=== PATIENT | male | born 1970 | race African-American/Black ===

== ENCOUNTER 2024-06-12 17:06 | Inpatient (IN) | payer OTHER ==
[2024-06-12 19:17] VITALS: BMI 26.6
[2024-06-12] MEDS ORDERED: POLYETHYLENE GLYCOL (HEALTHYLAX) 3350 17 GM PACKET PO PRN (19:31)
[2024-06-12] MEDS ORDERED: IBUPROFEN 600 MG TABLET (FP) PO PRN (19:31)
[2024-06-12] MEDS ORDERED: NICOTINE POLACRILEX 2 MG LOZENGE BC PRN (19:31)
[2024-06-12] MEDS ORDERED: NALOXONE HCL 0.4 MG/ML VIAL IM PRN (19:31)
[2024-06-12] MEDS ORDERED: DICYCLOMINE HCL 10 MG CAPSULE PO PRN (19:31)
[2024-06-12] MEDS ORDERED: MAG HYDROX/AL HYDROX/SIMETH 30 ML UNIT-DOSE CUP PO PRN (19:31)
[2024-06-12] MEDS ORDERED: guaiFENesin 600 MG TABLET.ER (FP) PO PRN (19:31)
[2024-06-12] MEDS ORDERED: BISMUTH SUBSALICYLATE 524 MG/30 ML PO PRN (19:31)
[2024-06-12] MEDS ORDERED: LOPERAMIDE HCL 2 MG CAPSULE PO PRN (19:31)
[2024-06-12] MEDS ORDERED: MAGNESIUM HYDROX 2400MG/30ML ORAL SUSPENSION 30 ML CUP PO PRN (19:31)
[2024-06-12] MEDS ORDERED: NALOXONE (NARCAN) HCL 4 MG/0.1 ML SPRAY NS PRN (19:31)
[2024-06-12] MEDS ORDERED: BENZONATATE 200 MG CAPSULE PO PRN (19:31)
[2024-06-12] MEDS ORDERED: IBUPROFEN 400 MG TABLET (FP) PO PRN (19:31)
[2024-06-12] MEDS ORDERED: BENZOCAINE/MENTHOL (CHLORASEPTIC ) LOZENGE MM PRN (19:31)
[2024-06-12] MEDS ORDERED: NICOTINE POLACRILEX 2 MG GUM BUC PRN (19:31)
[2024-06-12] MEDS ORDERED: ACETAMINOPHEN 325 MG TABLET (FP) PO PRN (19:31)
[2024-06-12] MEDS ORDERED: amLODIPine BESYLATE 5 MG TABLET (FP) ONE (21:34)
[2024-06-12] MEDS: amLODIPine BESYLATE 10 MG TABLET (FP) PO ONE (21:55)
[2024-06-12] MEDS ORDERED: MELATONIN 5 MG TABLETS ONE (22:59)
[2024-06-12] MEDS: MELATONIN 5 MG TABLETS PO SCH (23:10)
[2024-06-12] MEDS: THIAMINE 100 MG TABLET PO SCH (23:10)
[2024-06-13] MEDS: methaDONE HCL 10 MG TABLET (FOR DETOX USE ONLY) PO ONE (10:50)
[2024-06-13] MEDS: PRENATAL VITAMINS W/ FOLIC ACID TABLET (FP) PO SCH (10:52)
[2024-06-13 14:38] LABS: HEMATOCRIT 35.9 % (35.4-49); HEMOGLOBIN 11.9 GM/dL (11.7-16.9); MCH 30.4 pg (25.7-33.7); MCHC 33.1 g/dl (32.0-35.9); MEAN CELL VOLUME 91.7 fl (80-96); MEAN PLT VOLUME 8.3 fl (7.5-11.1); PLATELET COUNT 267 10^3/uL (134-434); RBC 3.92 M/mm3 (4.00-5.60); RDW 13.7 % (11.9-15.9); WHITE BLOOD COUNT 5.6 K/mm3 (4.0-10.0)
[2024-06-13 14:46] LABS: CHLORIDE 107 mmol/L (98-107); POTASSIUM 3.9 mmol/L (3.5-5.1); SODIUM 141 mmol/L (136-145)
[2024-06-13 14:54] LABS: ALBUMIN 2.9 g/dl (3.4-5.0); ANION GAP 6 mmol/L (4-13); BLOOD UREA NITROGEN 12.5 mg/dL (7-18); CALCIUM 8.3 mg/dL (8.5-10.1); CO2 29 mmol/L (21-32); GLUCOSE,RANDOM 87 mg/dL (74-106)
[2024-06-13 14:57] LABS: SGOT/AST 15 U/L (15-37); SGPT/ALT 13 U/L (13-61)
[2024-06-13 14:58] LABS: CREATININE 0.7 mg/dL (0.55-1.3)
[2024-06-13 14:59] LABS: BILIRUBIN,TOTAL 0.6 mg/dL (0.2-1); TOT PROT 5.7 g/dl (6.4-8.2)
[2024-06-13 15:00] LABS: ALK PHOS 60 U/L (45-117)
[2024-06-13] MEDS: cloNIDine HCL 0.1 MG TABLET PO PRN (21:40)
[2024-06-13] MEDS: METHOCARBAMOL 500 MG TABLET PO PRN (21:40)
[2024-06-14] MEDS: LOSARTAN POTASSIUM 50 MG TABLET PO SCH (13:40)
[2024-06-14] MEDS: amLODIPine BESYLATE 10 MG TABLET (FP) PO SCH (13:40)
[2024-06-14] MEDS: P-EPHED 60MG/TRIPROLIDI 2.5MG TABLET PO PRN (15:17)
[2024-06-14] MEDS: diazePAM 5 MG TABLET PO PRN (15:40)
[2024-06-14] MEDS: ONDANSETRON *ODT* 4 MG TABLET SL PRN (22:52)
[2024-06-15] MEDS: methaDONE HCL 10 MG TABLET (FOR DETOX USE ONLY) PO ONE (10:37)
[2024-06-16] MEDS: LOSARTAN POTASSIUM 50 MG TABLET PO ONE (13:48)
[2024-06-16] MEDS: TRIMETHOBENZAMIDE HCL 200MG/2ML INJ IM ONE (13:48)
[2024-06-16] MEDS: diazePAM 5 MG TABLET PO ONE (13:49)
[2024-06-16] MEDS: MELATONIN 5 MG TABLETS PO SCH (22:34)
[2024-06-16] MEDS: cloNIDine HCL 0.1 MG TABLET PO ONE (22:34)
[2024-06-17 06:48] VITALS: TEMP 97.8
[2024-06-17 09:08] VITALS: BP 169/108; PULSE 62; RESP 18
[2024-06-17] MEDS: methaDONE HCL 10 MG TABLET (FOR DETOX USE ONLY) PO ONE (10:03)
[2024-06-17] MEDS: LOSARTAN POTASSIUM 50 MG TABLET PO SCH (10:04)
== END 2024-06-17 11:00 | disposition home or self-care (01) | DRG 773 ==
LOC: YASAS 17:06 → Y3N 22:07
PROVIDERS: ADMIT Allergy & Immunology; ATTEND Surgery
PROC: HZ2ZZZZ Detoxification Services for Substance Abuse Treatment (ICD-10-PCS; principal; 2024-06-12)
DX: F11.23 Opioid dependence with withdrawal (principal); F10.230 Alcohol dependence with withdrawal, uncomplicated; F14.20 Cocaine dependence, uncomplicated; F17.210 Nicotine dependence, cigarettes, uncomplicated; F19.280 Other psychoactive substance dependence with psychoactive substance-induced anxiety disorder
CPT/HCPCS: 36415; 80053; 80305; 80307; 85027; 86593; 86780; 93005; 93010; Q0162

== ENCOUNTER 2024-09-09 18:52 | Inpatient (IN) | payer OTHER ==
[2024-09-09 20:09] VITALS: BMI 20.5
[2024-09-09] MEDS ORDERED: LOPERAMIDE HCL 2 MG CAPSULE PO PRN (21:25)
[2024-09-09] MEDS ORDERED: DICYCLOMINE HCL 10 MG CAPSULE PO PRN (21:25)
[2024-09-09] MEDS ORDERED: ACETAMINOPHEN 325 MG TABLET (FP) PO PRN (21:25)
[2024-09-09] MEDS ORDERED: NALOXONE (NARCAN) HCL 4 MG/0.1 ML SPRAY NS PRN (21:25)
[2024-09-09] MEDS ORDERED: IBUPROFEN 400 MG TABLET (FP) PO PRN (21:25)
[2024-09-09] MEDS ORDERED: MAGNESIUM HYDROX 2400MG/30ML ORAL SUSPENSION 30 ML CUP PO PRN (21:25)
[2024-09-09] MEDS ORDERED: POLYETHYLENE GLYCOL (HEALTHYLAX) 3350 17 GM PACKET PO PRN (21:25)
[2024-09-09] MEDS ORDERED: MAG HYDROX/AL HYDROX/SIMETH 30 ML UNIT-DOSE CUP PO PRN (21:25)
[2024-09-09] MEDS ORDERED: BENZOCAINE/MENTHOL (CHLORASEPTIC ) LOZENGE MM PRN (21:25)
[2024-09-09] MEDS ORDERED: ONDANSETRON *ODT* 4 MG TABLET SL PRN (21:25)
[2024-09-09] MEDS ORDERED: BENZONATATE 200 MG CAPSULE PO PRN (21:25)
[2024-09-09] MEDS ORDERED: guaiFENesin 600 MG TABLET.ER (FP) PO PRN (21:25)
[2024-09-09] MEDS ORDERED: NICOTINE POLACRILEX 2 MG GUM BUC PRN (21:25)
[2024-09-09] MEDS ORDERED: methaDONE HCL 10 MG TABLET (FOR DETOX USE ONLY) PO PRN (21:29)
[2024-09-09] MEDS ORDERED: methaDONE HCL 10 MG TABLET (FOR DETOX USE ONLY) ONE (22:00)
[2024-09-09] MEDS ORDERED: MELATONIN 5 MG TABLETS ONE (22:00)
[2024-09-09] MEDS: methaDONE HCL 10 MG TABLET (FOR DETOX USE ONLY) PO ONE (23:44)
[2024-09-09] MEDS: MELATONIN 5 MG TABLETS PO SCH (23:55)
[2024-09-09] MEDS: THIAMINE 100 MG TABLET PO SCH (23:57)
[2024-09-10] MEDS: cloNIDine HCL 0.1 MG TABLET PO ONE (06:39)
[2024-09-10] MEDS: PRENATAL VITAMINS W/ FOLIC ACID TABLET (FP) PO SCH (09:08)
[2024-09-10] MEDS: hydrOXYzine PAMOATE 25 MG CAPSULE (FP) PO PRN (09:08)
[2024-09-10] MEDS: IBUPROFEN 600 MG TABLET (FP) PO PRN (09:08)
[2024-09-10] MEDS: METHOCARBAMOL 500 MG TABLET PO PRN (09:08)
[2024-09-10] MEDS: NICOTINE 14 MG/24 HOURS TOPICAL PATCH TD SCH (09:09)
[2024-09-10] MEDS: amLODIPine BESYLATE 10 MG TABLET (FP) PO SCH (11:35)
[2024-09-10] MEDS: LOSARTAN POTASSIUM 50 MG TABLET PO SCH (11:35)
[2024-09-10] MEDS: FLUTICASONE PROP 0.05% 16 GM NASAL SPRAY NS SCH (11:45)
[2024-09-10 12:53] LABS: CHLORIDE 105 mmol/L (98-107); POTASSIUM 3.7 mmol/L (3.5-5.1); SODIUM 141 mmol/L (136-145)
[2024-09-10 12:55] LABS: ALBUMIN 3.4 g/dl (3.4-5.0); ANION GAP 6 mmol/L (4-13); CALCIUM 9.1 mg/dL (8.5-10.1); CO2 30 mmol/L (21-32); GLUCOSE,RANDOM 93 mg/dL (74-106)
[2024-09-10 12:58] LABS: CREATININE 1.2 mg/dL (0.55-1.3); HEMATOCRIT 39.5 % (35.4-49); MCH 30.5 pg (25.7-33.7); MEAN CELL VOLUME 92.5 fl (80-96); MEAN PLT VOLUME 8.5 fl (7.5-11.1); PLATELET COUNT 265 10^3/uL (134-434); RBC 4.27 M/mm3 (4.00-5.60); RDW 13.4 % (11.9-15.9); SGOT/AST 12 U/L (15-37); SGPT/ALT 17 U/L (13-61); WHITE BLOOD COUNT 5.4 K/mm3 (4.0-10.0)
[2024-09-10 13:00] LABS: BILIRUBIN,TOTAL 0.6 mg/dL (0.2-1); TOT PROT 6.2 g/dl (6.4-8.2)
[2024-09-10 13:01] LABS: ALK PHOS 62 U/L (45-117)
[2024-09-10] MEDS: cloNIDine HCL 0.1 MG TABLET PO PRN (17:33)
[2024-09-11] MEDS: BISMUTH SUBSALICYLATE 524 MG/30 ML PO PRN (06:31)
[2024-09-11] MEDS: methaDONE HCL 10 MG TABLET (FOR DETOX USE ONLY) PO ONE (09:22)
[2024-09-13] MEDS: methaDONE HCL 10 MG TABLET (FOR DETOX USE ONLY) PO ONE (09:37)
[2024-09-13] MEDS: NALOXONE (NYS OPIOID OVERDOSE PROGRAM) 4 MG/0.1 ML SPRAY NS SCH (16:05)
[2024-09-13 21:21] VITALS: PULSE 60
[2024-09-13] MEDS: cloNIDine HCL 0.1 MG TABLET PO ONE (23:01)
[2024-09-14 06:55] VITALS: RESP 16
[2024-09-14 08:45] VITALS: BP 139/86; TEMP 97.7
== END 2024-09-14 11:43 | disposition home or self-care (01) | DRG 773 ==
LOC: YASAS 18:52 → Y6N 22:25
PROVIDERS: ADMIT Allergy & Immunology; ATTEND Surgery
PROC: HZ2ZZZZ Detoxification Services for Substance Abuse Treatment (ICD-10-PCS; principal; 2024-09-09)
DX: F11.23 Opioid dependence with withdrawal (principal); F14.10 Cocaine abuse, uncomplicated; F17.210 Nicotine dependence, cigarettes, uncomplicated; I10 Essential (primary) hypertension; R07.9 Chest pain, unspecified; R94.31 Abnormal electrocardiogram [ECG] [EKG]; R09.81 Nasal congestion; R76.8 Other specified abnormal immunological findings in serum; Z86.19 Personal history of other infectious and parasitic diseases
CPT/HCPCS: 36415; 80053; 80305; 80307; 85027; 86593; 86780; 93005; 93010